=== PATIENT | female | born 1965 | race Caucasian/White ===

== ENCOUNTER 2021-04-19 09:31 | Outpatient (REF) | payer OTHER, SELFPAY ==
[2021-04-19 11:00] LABS: MANUAL DIFF FLAG NO
[2021-04-19 11:10] LABS: Basophils Percent Auto 0.6 % (0-2); Eosinophils Absolute Auto 0.2 X10*3/uL (0.0-0.4); Eosinophils Percent Auto 2.7 % (0-4); Hemoglobin 12.8 g/dl (12.0-16.0); Imm Gran Abs Auto 0.01 X10*3/uL (0.00-0.03); Imm Gran Pct Auto 0.2 % (0.0-0.4); Lymphocytes Absolute Auto 2.2 X10*3/uL (1.2-4.9); Lymphocytes Percent Auto 34.2 % (20-40); Mean Corpuscular Hemoglobin 28.6 pg (27.0-33.0); Mean Corpuscular Volume 89.5 fL (80.0-98.0); Mean Platelet Volume 11.6 fL (9.4-12.3); Monocytes Absolute Auto 0.7 X10*3/uL (0.1-1.2); Monocytes Percent Auto 10.4 % (2-11); Neutrophils Absolute Auto 3.3 x10*3/uL (2.0-8.3); Neutrophils Percent Auto 51.9 % (45-73); Platelet Count 220 X10*3/uL (160-400); Red Blood Count 4.47 X10*6/uL (4.20-5.50); Red Cell Distribution Width 13.2 % (11.0-16.0); White Blood Count 6.3 X10*3/uL (4.8-10.8)
[2021-04-19 11:44] LABS: Alanine Aminotransferase 14 U/L (0-31); Albumin Level 4.2 g/dL (3.5-5.0); Alkaline Phosphatase 121 U/L (39-117); Anion Gap 11 (12-20); Aspartate Amino Transferase 26 U/L (5-31); Bilirubin Total 0.8 mg/dL (0.0-1.0); Blood Urea Nitrogen 13 mg/dL (9-16); Calcium 9.7 mg/dL (8.4-10.2); Carbon Dioxide 28 mmol/L (22-29); Chloride 104 mmol/L (96-108); Cholesterol 169 mg/dL; Estimated Glomerular Filt Rate > 60; Glucose Fasting 89 mg/dL (60-99); HDL Cholesterol 71 mg/dL; LDL Cholesterol Calculated 81 mg/dl; Potassium 4.8 mmol/L (3.3-5.1); Sodium 138 mmol/L (135-145); Total Protein 7.7 g/dL (6.5-8.0); Triglycerides 86 mg/dL
[2021-04-19 12:07] LABS: Vitamin D 25-OH Total 9.9 ng/mL (>30)
[2021-04-19 12:15] LABS: Folate 10.2 ng/mL (> or = 4.0); Vitamin B12 243 pg/mL (200-900)
== END 2021-04-19 09:32 | disposition home or self-care (01) ==
LOC: HO.LAB 09:31
PROVIDERS: Absent Provider Internal Medicine; PCP Internal Medicine; Visit Provider Nurse Practitioner Family
DX: Z01.818 Encounter for other preprocedural examination (principal); E66.9 Obesity, unspecified
CPT/HCPCS: 36415; 80053; 80061; 82306; 82607; 82746; 85025

== ENCOUNTER 2022-04-16 12:07 | Outpatient (REF) | payer OTHER, SELFPAY ==
--- NOTE | ~2022-04-16 | XR_ITS ---
EXAMINATION: XR CHEST CLINICAL INFORMATION: Cough COMPARISON: December 25, 2015 TECHNIQUE: 2 views of the chest were obtained. FINDINGS: No significant abnormality is noted involving the heart, lungs, mediastinum, bony thorax or soft tissues. XR/XR chest 2V IMPRESSION: No acute disease.
[2022-04-16 15:24] LABS: Influenza A PCR NEGATIVE (Negative); Influenza B PCR NEGATIVE (Negative); Resp Syncy Virus RNA Qual PCR NEGATIVE (Negative); SARS COV2 PCR INHOUSE NEGATIVE (Negative)
== END 2022-04-16 12:08 | disposition home or self-care (01) ==
LOC: HO.HMGCX 12:07
PROVIDERS: PCP Internal Medicine; Visit Provider Nurse Practitioner Family
DX: R05.9 Cough, unspecified (principal); Z20.822 Contact with and (suspected) exposure to COVID-19
CPT/HCPCS: 0241U; 71046

== ENCOUNTER 2023-02-18 11:16 | Outpatient (AMB) | payer OTHER, SELFPAY ==
[2023-02-18 11:25] VITALS: BP 122/74; PULSE 84; O2SAT 97; BMI 41.0
--- NOTE | 2023-02-18 11:31 | MHC.OFFWIV ---
Intake Vital Signs 02/18/23 11:25 Height 5 ft 2 in Weight 224 lb BMI 41.0 BP 122/74 Blood Pressure Location Lt brachial Position Sitting Pulse 84 Pulse Source Pulse Oximeter Pulse Oximetry (%) 97 Oxygen Delivery Method Room Air Intake Visit Reasons: congestion,cough Intake Note: Patient is here with cough, congestion since the 02/14. and she has a hard time catching her breath, with green/yellow heavy mucous. Patient Tobacco Use Status: Former Tobacco user Allergies oxycodone [Percocet] Allergy (Unknown, Verified 02/18/23 12:14) hives From [facility] Allergy (Intermediate, Uncoded 04/21/22 10:48) HIVES Medication List - Last Reconciled 02/18/23 by Sylvie Mason, [facility] albuterol sulfate 90 mcg/actuation 1 puff inhalation Q6H PRN albuterol sulfate 90 mcg/actuation 2 puffs inhalation Q6H PRN cholecalciferol (vitamin D3) 1,250 mcg PO QWEEK 90 days Do you need a note to return to daycare/school/sports/work: Yes HPI HPI Comments History of Present Illness Details Here today c/o prod cough, started 02/14/23 taking pseudophed q4 hours and STEFFANY, APAP w/ limited relief Mucous is gagging her Worse since onset; sx are worse at HS + headache, hoarse voice Not UTD on vaccines 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 Denies fever, chills, sore throat. PFSH Medical History Breast cancer screening by mammogram Cervical cancer screening Hearing loss in right ear Mild intermittent asthma in adult without complication Obesity Seasonal allergic rhinitis Vitamin D deficiency Surgical History History of cholecystectomy History of esophagogastroduodenoscopy (EGD) History of hernia surgery History of hysterectomy, supracervical History of Isidra-en-Y gastric bypass Family History Father Non Hodgkin's lymphoma Social History Housing: House Patient Tobacco Use Status: Former Tobacco user Years Smoked: 8 yrs e-Cigarette/Vaping Use: Never Used Second Hand Smoke Exposure: No service: No Current occupational status: employed Current occupation: teacher Current occupational exposures/hazards: No Cognitive needs: No Hearing needs: No Vision needs: No Review of Systems Const All systems reviewed & are unremarkable except as noted in HPI and below Physical Exam Vital Signs: Last Vital Signs Pulse 84 02/18/23 11:25 BP 122/74 02/18/23 11:25 Pulse Ox 97 02/18/23 11:25 Oxygen Delivery Method Room Air 02/18/23 11:25 BMI result Body Mass Index 41.0 Const Other: awake alert NAD conjunctiva clear bilat TM intact and clear bilat, mild cerumen in L, Hearing aide R Nares with mild drainage, turbinates mild erythema, no sinus tenderness w/ palp Pharynx clear LS CTAB, mild cough noted during exam. Voice hoarse RRR Assessment & Plan Assessment & Plan (1) Cough: Code(s): R05.9 - Cough, unspecified Qualifiers: Cough type: acute Qualified Code(s): R05.1 - Acute cough (2) Flu-like symptoms: Code(s): R68.89 - Other general symptoms and signs Plan: . Plan . Orders: Orders SARS-CoV2/FLU/RSV Today R05.9 - Cough, unspecified Medications: New benzonatate 100 mg PO TID 10 days PRN 30 caps 1RF cough prednisone 40 mg (2 x 20 mg) PO DAILY 5 days 10 tabs 0RF Refilled albuterol sulfate 90 mcg/actuation 2 puffs inhalation Q6H PRN 6.7 grams 0RF shortness of breath or wheezing Patient Instructions: Viral swab today Treat cough w/ medications Supportive care if flu + recommend tamiflu be sent in if COVID + do not recommend treatment other than following current CDC guidelines advised no tx needed for RSV RTO if worsening sx. Coding Level of Care Code Est Pt Level 3 (46610) Diagnoses Acute cough R05.1 Cough type: acute Flu-like symptoms R68.89
== END 2023-02-18 12:34 | disposition home or self-care (01) ==
PROVIDERS: PCP Internal Medicine; Visit Provider Nurse Practitioner Family
DX: R05.1 Acute cough (principal); R68.89 Other general symptoms and signs
CPT/HCPCS: 99213

== ENCOUNTER 2023-02-18 14:55 | Outpatient (REF) | payer OTHER, SELFPAY | END 2023-02-18 14:56 | disposition home or self-care (01) | LOC: HO.LNP 14:55 | PROVIDERS: Visit Provider Nurse Practitioner Family | DX: Z11.52 Encounter for screening for COVID-19 (principal); Z20.822 Contact with and (suspected) exposure to COVID-19; R05.9 Cough, unspecified | CPT/HCPCS: 0241U ==